=== PATIENT | female | born 1975 | race Caucasian/White ===

== ENCOUNTER 2016-12-18 12:01 | Inpatient (IN) ==
[2016-12-18] MEDS ORDERED: METOPROLOL TARTRATE 25 MG TABLET PO STA (12:52)
[2016-12-18] MEDS ORDERED: ASPIRIN 325 MG TABLET PO STA (12:52)
[2016-12-18] MEDS ORDERED: SODIUM CHLORIDE 0.9% 500 ML IV STA (12:52)
[2016-12-18] MEDS ORDERED: NITROGLYCERIN 2% OINT 1 INCH/GM PACK TOP STA (12:52)
[2016-12-18] MEDS ORDERED: ALUM/MAG/SIMETH/LIDO VISC 1:1 30 ML BOTTLE PO STA (12:52)
[2016-12-18] MEDS ORDERED: ONDANSETRON 4 MG/2 ML VIAL IV STA (12:52)
[2016-12-18] MEDS ORDERED: MORPHINE 2 MG/1 ML SYRINGE IV STA (12:52)
--- NOTE | 2016-12-18 12:56 | EKG Report ---
Stationary ECG Study [facility] ER Test Date: 12/18/2016 12:16:28 PM Pat Name: WOODROW DONALDSON Department: Room: Gender: F Behavioral Analyst: PALOMO Martínez : 1975 Requested by: Mitch Olvera Order Number: [id number] Reading MD: RADHA SANDERS Intervals [place] Rate: 99 P: 58 SC: 138 QRS: 76 QRSD: 97 T: 48 QT: 341 QTc: 397 Interpretive Statements SINUS RHYTHM MINIMAL ST DEPRESSION Electronically Signed On 12-18-16 15:55:27 CDT by RADHA SANDERS [email or web address]
[2016-12-18 13:10] LABS: Basophils % 0.3 % (0.0-0.8); Eosinophils # 0.1 10*3/uL (0.0-0.87); Eosinophils % 0.7 % (0.00-10.9); Hematocrit 39.8 VOL% (35.7-47.0); Hemoglobin 14.1 GM/DL (12.0-16.0); Immature Granulocytes % 0.4 %; Immature Granulocytes Absolute 0.04 #; Lymphocytes # 3.8 10*3/uL (1.4-4.0); Lymphocytes % 35.1 % (21.3-54.2); Mean Corpuscular HGB Conc 35.4 GM/DL (32-36); Mean Corpuscular Hemoglobin 33 PG (27-34); Mean Corpuscular Volume 91.9 FL (87-102); Mean Platelet Volume 10.3 FL (9.6-12.0); Monocytes # 0.8 10*3/uL (0.11-0.8); Neutrophils # 6.1 10*3/uL (1.4-7.4); Neutrophils % 56.5 % (38.7-73.9); Platelet Count 278 T/CUMM (130-400); Red Blood Count 4.33 MC/CUMM (3.8-5.5); Red Cell Distribution Width 12.2 % (9.3-17.3); White Blood Count 10.8 T/CUMM (4-12)
--- NOTE | 2016-12-18 13:13 | XRay Report ---
2 view chest. Indication: Chest pain. The heart and mediastinal contours are unremarkable. The pulmonary vasculature is normal. The lung vines are clear. No pneumothorax or pleural effusion. Surgical clips in the right upper quadrant. Impression: No acute abnormality. PROCEDURE INTERPRETED AT [facility] DEPARTMENT OF RADIOLOGY Final Report Signed by: Dr. Ramya Saenz
[2016-12-18 13:18] LABS: Albumin 4.3 G/DL (3.4-5.0); Bilirubin,Total 0.5 MG/DL (0.2-1.0); Calcium 9.7 MG/DL (8.5-10.1); Magnesium 2.2 MG/DL (1.8-2.4); Osmolality,Calculated 275.5 MOS/KG (273-304); Total Protein 7.5 G/DL (6.4-8.3)
[2016-12-18 13:18] LABS: D-Dimer <= 0.5 MG/L FEU; PT Patient Result 10.2 SECS
[2016-12-18 13:19] LABS: Troponin I Only < 0.015 NG/ML (0.00-0.045)
[2016-12-18] MEDS ORDERED: ONDANSETRON 4 MG/2 ML VIAL ONE (13:37)
[2016-12-18] MEDS ORDERED: METOPROLOL TARTRATE 25 MG TABLET ONE (13:37)
[2016-12-18] MEDS ORDERED: NITROGLYCERIN 2% OINT 1 INCH/GM PACK TOP ONE (13:37)
[2016-12-18] MEDS ORDERED: MORPHINE 2 MG/1 ML SYRINGE ONE (13:37)
[2016-12-18] MEDS ORDERED: ALUM/MAG/SIMETH/LIDO VISC 1:1 30 ML BOTTLE PO ONE (13:38)
[2016-12-18] MEDS ORDERED: ASPIRIN 325 MG TABLET ONE (13:38)
--- NOTE | 2016-12-18 14:11 | Emergency Department Note ---
Miguel Bai Brooke, am scribing for, and in the presence of, Mitch Vargas MD 13 :04. Sam Bai Charles R, MD, personally performed the services described in this documentation, ascribed by Sofya Rivera in my presence, and it is both accurate and complete 411 . Arrival - Arrival Chief Complaint: Chest Pain Stated Complaint: chest pain ED Nursing Triage Note: Pt c/o chest pain that has comes and goes x 1 wk starts behind her left shoulder blade through to her chest. Mode of Arrival: Ambulatory Limitations: No Limitations Source: Patient, RN Notes Reviewed Time Seen by Provider: 12/18/16 12:45 - History of Present Illness HPI Narrative: Patient is a 89 year old female who presents to the ED with c/o chest pain that started a little over a week ago. She says the pain is intermittent and lasts about a minute each time. The pain is located on the left side of her chest and radiates through to her shoulder blade. Patient describes the pain as squeezing. She says the pain is not worsened with exertion but seems to be worse when sitting still. She went to the beach, this past weekend, and says the pain got really bad while driving down there. Patient denies any recent exercise or heavy lifting. She has not had any extra stress. She says she is not currently hurting but has hurt since arriving at the ED. Patient denies having any nausea, shortness of breath, or diaphoresis. Patient has been taking Rolaids, Anti-acids, and Aleve and says nothing has relieved the pain. Patient is a smoker and says she quit smoking and the chest pain started about a week later. She says she has started smoking about two cigarettes a day since the pain started. Patient has PMHx of HTN and takes Lisinopril. She says her blood pressure has been normal. She has not taken any ASA. FHx of heart disease includes her father. Onset (ago): week(s) (1) Date of Last Menstrual Period: over 1 wk ago Allergies/Adverse Reactions: Allergies Allergy/AdvReac Type Severity Reaction Status Date / Time No Known Allergies Allergy Verified 12/18/16 12:03 Review of System - Review of System 12 point system: reviewed and no additional remarkable complaints except as stated - Review of System Constitutional: Absent: diaphoresis, fever Respiratory: Absent: respiratory distress Cardiovascular: Present: chest pain Gastrointestinal: Absent: nausea Skin: Absent: rash Medical,Surgical,& Family Hx - Medical History Cardio: History of: Hypertension Psychological: History of: Depression Endocrine: History of: Dyslipidemia - Social History Smoking Status: Current every day smoker Exam Vital Signs: Vital Signs Temperature 99.1 F 12/18/16 12:50 Pulse Rate 109 H 12/18/16 12:50 Respiratory Rate 18 12/18/16 12:50 Blood Pressure 186/119 12/18/16 12:50 O2 Sat by Pulse Oximetry 100 12/18/16 13:09 - General General appearance: alert, in no apparent distress - Head Head exam: Present: atraumatic, normocephalic - Eye Eye exam: Present: normal appearance, PERRL, EOMI - ENT ENT exam: Present: normal exam - Neck Neck exam: Present: normal inspection - Chest Chest inspection: Present: normal inspection, symmetric chest wall rise - Respiratory Respiratory exam: Present: normal lung sounds bilaterally - Cardiovascular Cardiovascular exam: Present: regular rate, normal rhythm, normal heart sounds - Abdominal Exam Abdominal exam: Present: soft, normal bowel sounds. Absent: distention, tenderness - Extremities Exam Extremities exam: Present: normal inspection - Back Exam Back exam: Present: normal inspection - Neurological Exam Neurological exam: Present: alert, oriented X3 - Psychiatric Psychiatric exam: Present: normal affect, normal mood - Skin Skin exam: Present: warm, dry, intact, normal color Course - Consultations Consultation #1: Hospitalist will admit patient Time: 14:11 Results - Labs CBC & BMP: 12/18/16 11:43 12/18/16 12:43 Lab Results: I have reviewed the patients labs Labs: Laboratory Tests 12/18/16 11:43 WBC 10.8 RBC 4.33 Hgb 14.1 Hct 39.8 MCV 91.9 MCH 33 MCHC 35.4 RDW 12.2 Plt Count 278 MPV 10.3 Neut % (Auto) 56.5 Lymph % (Auto) 35.1 [place] % (Auto) 7.0 Eos % (Auto) 0.7 Baso % (Auto) 0.3 Neut # (Auto) 6.1 Lymph # (Auto) 3.8 [place] # (Auto) 0.8 Eos # (Auto) 0.1 Baso # (Auto) 0.0 Immature Gran % 0.4 Nucleated RBC % 0.0 Immature Gran # 0.04 Nucleated RBCs # 0.00 Immature Plt Fraction 0.0 Laboratory Tests 12/18/16 12/18/16 12/18/16 11:43 12:43 12:43 INR 1.0 PT Patient/Control Mix 10.2 D-Dimer, Quantitative <= 0.5 Sodium 139 Potassium 4.0 Chloride 106 Carbon Dioxide 24 Anion Gap 13.0 BUN 9 Creatinine 0.70 GFR Calculation 99 BUN/Creatinine Ratio 12.00 Glucose 98 Calculated Osmolality 275.5 Calcium 9.7 Magnesium 2.2 Total Bilirubin 0.50 AST 11 ALT 23 Alkaline Phosphatase 54 Total Creatine Kinase 65 CK-MB (CK-2) < 1.0 Troponin I < 0.015 Total Protein 7.5 Albumin 4.3 Globulin 3.2 Albumin/Globulin Ratio 1.3 Lipase 155.0 Laboratory Tests 12/18/16 11:43 B-Natriuretic Peptide 24 - Diagnostic Findings Procedure: Chest x-ray: report reviewed by me (No acute abnormality.) Disposition Clinical Impression: Chest pain Case discussed with: patient, patient's family Disposition: Still a Patient Condition: Stable Time of Disposition: 14:11
[2016-12-18] MEDS ORDERED: ONDANSETRON 4 MG/2 ML VIAL IV PRN (14:27)
[2016-12-18] MEDS ORDERED: NITROGLYCERIN SL 0.4 MG TABLET SL PRN (14:49)
--- NOTE | 2016-12-18 14:59 | Hospitalist History & Physical ---
Assessment and Plan (1) Nicotine addiction Status: Acute Assessment and plan: The patient reports recent attempt to stop smoking. She reported that she had stopped smoking 2 weeks ago however, started back smoking on this weekend. Spoke with patient in great detail regarding the merits associated with smoking necessitation. The patient agreed that she indeed needed to refrain from cigarette smoking. Nicotine patch has been ordered and the patient has agreed to use during the clinical encounter. Current Visit: Yes (2) Hypertension Status: Acute Assessment and plan: Blood pressure was stable at the time of ED encounter. At the time of presentation, the patient presented with her current antihypertensive agent lisinopril 10 mg daily. We will resume as previously ordered. In addition, we will start low-dose aspirin and beta-craig. We will monitor blood pressures closely during the clinical encounter. Current Visit: Yes (3) Insurance coverage problems Status: Acute Assessment and plan: The patient was reluctant to agree to the hospital admission due to her lack of current healthcare coverage. We will make a social service consult to assist and provide the patient with options for insurance coverage. Current Visit: Yes (4) Chest pain Status: Acute Assessment and plan: The patient reported the onset of chest pain 1 week prior to presentation. She reported that the chest pain was isolated to the left side of her chest radiating down to her shoulder. In addition, she reported that she has a strong family history for sudden cardiac and that multiple family members had succumb secondary to this. I feel that she has multiple and strong risk factors attributing to severe cardiovascular disease. We will obtain serial cardiac enzymes, stat lipid panel, echocardiogram, and low-dose aspirin. We will monitor closely. If cardiac enzymes are positive, we will consult cardiology. Current Visit: Yes History of Present Illness Chief complaint: Chest pain History of present illness: This is a very pleasant 41-year-old female that presented to the ED at [facility] on this afternoon for the evaluation of chest pain. Patient has a medical history significant for nicotine addiction, hypertension, and depression. Patient has a surgical history significant for bilateral breast implantation, tummy tuck, multiple abdominal laparotomy procedures. The patient reported the onset of symptoms 1 week prior to presentation. She reported multiple episodes in which she experienced intermittent pain lasting about 1 minute in duration. She reported that the pain was isolated to the left side of her chest however, radiated through to her shoulder blade. She described the pain as squeezing that is not worsened by exertion however, worsened upon nonmovement. She reports that she had been taking multiple antidepressants and NSAIDs this we can however failed to receive any degree of relief. In addition, the patient denied nausea, shortness of breath, diaphoresis, vertigo, and syncope. Her symptoms became severe this afternoon prompting her to present to the ED at [facility] for further evaluation. The patient was assessed at the time of ED presentation. The chest pain protocol was initiated. Labs were obtained which were essentially unremarkable for any abnormalities. Chest x-ray was essentially unremarkable for the presence of any acute cardiopulmonary processes. Incidentally, the patient reported a strong family history significant for cardiovascular disease. The patient reported that her father, aunt, and grandmother all from massive heart attacks. After brief discussion with both Dr. Vargas and Dr. Velez, the patient will be admitted to the hospitalist service for continuation of care. The patient's home medications have been reviewed and reconciled. CODE STATUS discussed; patient is a FULL CODE. Allergies Allergy/AdvReac Type Severity Reaction Status Date / Time No Known Allergies Allergy Verified 12/18/16 12:03 Medical,Surgical,& Family Hx - Medical History Cardio: History of: Hypertension Psychological: History of: Depression Endocrine: History of: Dyslipidemia - Social History Smoking Status: Current every day smoker 12 point system: reviewed and no additional remarkable complaints except as stated Exam - Constitutional Vitals: Period Temp Pulse Resp BP Sys/Hodgson Pulse Ox Last 24 Hr 99.1 F-99.1 F 109-109 18-18 186-186/119-119 100-100 General appearance: normal weight, no acute distress - Head Head exam: Present: normal inspection, normocephalic, atraumatic - Eye Eye exam: Present: EOMI, nystagmus. Absent: conjunctival injection Pupils: Present: JUAQUIN, normal accommodation - ENT ENT exam: Present: normal exam, normal external ear exam, normal oropharynx - Neck Neck exam: Present: normal inspection. Absent: lymphadenopathy, meningismus, tenderness, thyromegaly - Respiratory Respiratory exam: Present: clear to auscultation bilaterally. Absent: rales, rhonchi, stridor, wheezes - Cardiovascular Cardiovascular exam: Present: regular rate and rhythm. Absent: carotid bruit, diastolic murmur, gallop, JVD, rubs, systolic murmur - GI/Abdominal GI/Abdominal exam: Present: normal bowel sounds, soft - Extremities Exam Extremities exam: Present: normal inspection, normal capillary refill, full ROM , edema - Back Exam Back exam: Present: normal inspection - Neurological Exam Neurological exam: Present: alert, oriented X3, CN II-XII intact - Psychiatric Psychiatric exam: Present: normal affect, normal mood - Skin Skin exam: Present: normal color, warm, dry Results - Labs CBC & BMP: 12/18/16 11:43 12/18/16 12:43 Lab Results: I have reviewed the past 24 hour labs
[2016-12-18 15:36] LABS: Risk Ratio 5.45; VLDL CHOLESTEROL 59.8 MG/DL
[2016-12-18] MEDS ORDERED: NICOTINE 7 MG/24 HR PATCH TRANSDERM PRN (16:05)
[2016-12-18] MEDS: NICOTINE 21 MG/24 HR PATCH TRANSDERM SCH (16:49)
[2016-12-18] MEDS: ALUMINUM/MAGNES/SIMETH MAX STR 30 ML UDCUP PO SCH ×2 (16:59→21:10)
--- NOTE | 2016-12-18 17:54 | Cardiology Consult Note ---
Richardson, Maryam Perez, NORMA, am scribing for, and in the presence of, Sarah Danielle DO 17:49. Assessment and Plan - Time spent with patient Time spent with patient: Greater than 30 minutes (1) Chest pain Status: Chronic Assessment and plan: This is noncardiac chest pain. Patient has some family history of coronary artery disease she smokes she has hypertriglyceridemia with an HDL of 40 and LDL of 120. I recommend that we initiated enteric-coated 81 mg aspirin daily which she previously did not take I recommend that we add a statin therapy and anticipate gated walking nuclear stress test tomorrow. She has a family history of sudden cardiac and premature coronary disease in her father and her paternal aunt which in the face of her tobacco, hypertension and dyslipidemia put her at some increased risk for coronary artery disease. Her lipids are typical for smoker and I recommend further evaluation was for discharge for further risk stratification. She has a ROSANA risk score of 0. Current Visit: Yes Qualifiers: Chest pain type: precordial pain Qualified Code(s): R07.2 - Precordial pain (2) Nicotine addiction Status: Chronic Assessment and plan: SEE PLAN OF CARE LISTED BELOW Current Visit: Yes Qualifiers: Nicotine product type: cigarettes (3) Hypertension Status: Chronic Assessment and plan: SEE PLAN OF CARE LISTED BELOW Current Visit: Yes Qualifiers: Hypertension type: essential hypertension Qualified Code(s): I10 - Essential (primary) hypertension (4) Dyslipidemia Status: Acute Current Visit: Yes History of Present Illness - Data of Consult Patient: new to [facility] Consult date: 12/18/16 Requesting Physician: Danilo Velez Primary care physician: John Peterson - Consult Narrative Reason for consult: Atypical chest pain History of present illness: RECREATIONAL ASSISTANT: Dr. Danielle (new) Ms. Akbar is a 41 year old WF, who presented to the ER this morning with complaints of chest pain. She denies any cardiac history or workup. She reports a dull, squeezing pain in the left substernal region that has been on and off for over 1 week. She states that at times the pain has radiated into the left arm and the upper left back region. She denies aggravating or relieving factors. The pain is present at rest and with exertion. She denies nausea, vomiting, diaphoresis, shortness of breath, dizziness, syncope or edema. She reports that the chest pain has become more frequent and more intense over the weekend. She has smoked at least one pack per day for 25 years. She reports trying to quit about 3 weeks ago, but did start back over the weekend. She reports a positive family history of sudden cardiac of several family members. Cardiac risk factors include heavy smoker, sedentary life style, hypertension, dyslipidemia. EKG reveals sinus rhythm with minimal ST depression. Chest x-ray is unremarkable for cardiopulmonary findings. Labs reviewed: Hemoglobin and hematocrit are within normal limits, electrolyte WNL, creatinine 0.7, CK-MB and troponin are negative, triglycerides 299, cholesterol 218, LDL 121, HDL 40, lipase 155. Was given nitrates, aspirin, and beta-craig in the ER today. We will continue to cycle cardiac biomarkers and EKG in the morning. The patient' s chest pain is atypical, will plan for cardiac stress test in the morning. ASSESSMENT/PLAN: 1. Atypical chest pain -the patient appears to be having atypical chest pain, however due to her risk factors and family history, we will keep the patient n.p.o. after midnight plan for stress test tomorrow. 2. Smoker -the merits of smoking cessation have been discussed at length with the patient. Nicotine patch started. 3. Hypertension -continue home medication and monitor throughout hospitalization. I saw and discussed with Ms. Perez this is a 41-year-old female with paternal aunt who had sudden cardiac at age 40. Her father had premature coronary artery disease and has been under cardiac care for some years but she does not know exactly what age because of the strange situation with her father. She has had constant substernal chest discomfort that has not responded to OTC antiacids or nonsteroidals has not been relieved or caused by any precipitating factors. OTC nonsteroidals and antacids had no effect. He is not worsened by exertion or eating. During the entire course of the exam the patient is massaging her sternum with the butt of her hand. CC: Danilo Velez MD - Home Medications and Allergies Home Medications: Home Medications Medication Instructions Recorded Confirmed Type Lisinopril [Lisinopril] 10 mg PO BEDTIME 12/18/16 12/18/16 History buPROPion HCl [Bupropion HCl Sr] 150 mg PO BID 12/18/16 12/18/16 History Allergies/Adverse Reactions: Allergies Allergy/AdvReac Type Severity Reaction Status Date / Time No Known Allergies Allergy Verified 12/18/16 12:03 - Constitutional Constitutional: Absent: excessive sweating, fatigue, fever(s) - EENT Nose, mouth and throat: Absent: headache(s) - Cardiovascular Cardiovascular: Present: chest pain at rest, chest pain with activity, palpitations. Absent: diaphoresis, dyspnea, dyspnea on exertion, lightheadedness, orthopnea - Respiratory Respiratory: Absent: cough, dyspnea, dyspnea on exertion, wheezing - Gastrointestinal Gastrointestinal: Absent: abdominal pain, coffee ground emesis, constipation, dyspepsia, hematemesis, melena, nausea, vomiting - Neurological Neurological: Absent: abnormal gait, abnormal speech - Psychiatric Psychiatric: Present: depression - Endocrine Endocrine: Absent: fatigue, heat intolerance Medical,Surgical,& Family Hx - Medical History Cardio: History of: Hypertension Psychological: History of: Depression Neurology: History of: Migraine Endocrine: History of: Dyslipidemia Genitourinary: History of: Recurring Urinary Tract Infections Reproductive: History of: Endometriosis Other: History of: Miscellaneous Medical Problems (tummy tuck) - Surgical History Cardiac Surgeries: Patient Denies: Cardiac Catheterization Abdominal Surgeries: Surgical HX of: Cholecystectomy, Colonoscopy Reproductive Surgeries: Surgical HX of;: Breast Surgery (breast augmentatiom and tumy tuck) - Family History Family History: Reports;: Family Cancer (father), Family Heart Disease (father) , Family Hypertension (father) - Social History Smoking Status: Current every day smoker Have you smoked in the last 12 months: Yes Time spent discussing smoking cessation with patient: 3 to 10 minutes Frequency of Alcohol Use: Rarely Type of Drug Use: None Physical Examination Vital Signs Temp Pulse Resp BP Pulse Ox 99.1 F 109 H 18 186/119 100 12/18/16 12:02 12/18/16 12:02 12/18/16 12:02 12/18/16 12:02 12/18/16 12:02 Exam: General: Appears well with no apparent distress. Pleasant and cooperative. Appears comfortable. HEENT: PERRL, normocephalic, atraumatic. Mucous membranes moist. No jaundice noted. Conjunctiva moist and clear, sclerae anicteric. Neck: No JVD/HJR, no thyromegaly or lymphadenopathy noted. No carotid bruit appreciated. Cardiac: Regular rate and rhythm. No murmur rub or gallop. PMI is nondisplaced. Lungs: Clear to auscultation without accessory muscle use to assist the respiratory pattern. No oxygen required Abdomen: Soft, bowel sounds normoactive. Nontender and nondistended. No abdominal bruit or thrill noted. No masses noted. Musculoskeletal: No fluid collection. Active range of motion is noted to all extremities Extremities: No clubbing, cyanosis noted. No edema noted. Upper extremity pulses 2+. Lower extremity pulses 2+. Capillary refill less than 3 seconds. Skin: No unusual lesions or rashes. No skin breakdown appreciated. Neuro: Awake, alert and oriented 3. Moves all extremities well without hemiparesis or paralysis. No essential tremor is appreciated. Result/EKG - Labs CBC & BMP: 12/18/16 11:43 12/18/16 12:43 Lab Results: I have reviewed the past 24 hour labs Labs: Laboratory Results - last 24 hr 12/18/16 12/18/16 12/18/16 11:43 11:43 11:43 WBC 10.8 RBC 4.33 Hgb 14.1 Hct 39.8 MCV 91.9 MCH 33 MCHC 35.4 RDW 12.2 Plt Count 278 MPV 10.3 Neut % (Auto) 56.5 Lymph % (Auto) 35.1 [place] % (Auto) 7.0 Eos % (Auto) 0.7 Baso % (Auto) 0.3 Neut # (Auto) 6.1 Lymph # (Auto) 3.8 [place] # (Auto) 0.8 Eos # (Auto) 0.1 Baso # (Auto) 0.0 Immature Gran % 0.4 Nucleated RBC % 0.0 Immature Gran # 0.04 Nucleated RBCs # 0.00 Immature Plt Fraction 0.0 INR 1.0 PT Patient/Control Mix 10.2 D-Dimer, Quantitative <= 0.5 Sodium Potassium Chloride Carbon Dioxide Anion Gap BUN Creatinine GFR Calculation BUN/Creatinine Ratio Glucose Calculated Osmolality Calcium Magnesium Total Bilirubin AST ALT Alkaline Phosphatase Total Creatine Kinase CK-MB (CK-2) Troponin I B-Natriuretic Peptide 24 Total Protein Albumin Globulin Albumin/Globulin Ratio Triglycerides Cholesterol LDL Cholesterol VLDL Cholesterol HDL Cholesterol Heart Disease Risk Ratio Lipase 12/18/16 12/18/16 12/18/16 12:43 12:43 12:43 WBC RBC Hgb Hct MCV MCH MCHC RDW Plt Count MPV Neut % (Auto) Lymph % (Auto) [place] % (Auto) Eos % (Auto) Baso % (Auto) Neut # (Auto) Lymph # (Auto) [place] # (Auto) Eos # (Auto) Baso # (Auto) Immature Gran % Nucleated RBC % Immature Gran # Nucleated RBCs # Immature Plt Fraction INR PT Patient/Control Mix D-Dimer, Quantitative Sodium 139 Potassium 4.0 Chloride 106 Carbon Dioxide 24 Anion Gap 13.0 BUN 9 Creatinine 0.70 GFR Calculation 99 BUN/Creatinine Ratio 12.00 Glucose 98 Calculated Osmolality 275.5 Calcium 9.7 Magnesium 2.2 Total Bilirubin 0.50 AST 11 ALT 23 Alkaline Phosphatase 54 Total Creatine Kinase 65 CK-MB (CK-2) < 1.0 Troponin I < 0.015 B-Natriuretic Peptide Total Protein 7.5 Albumin 4.3 Globulin 3.2 Albumin/Globulin Ratio 1.3 Triglycerides 299 H Cholesterol 218 H LDL Cholesterol 121.0 VLDL Cholesterol 59.8 HDL Cholesterol 40 Heart Disease Risk Ratio 5.45 Lipase 155.0 12/18/16 16:04 WBC RBC Hgb Hct MCV MCH MCHC RDW Plt Count MPV Neut % (Auto) Lymph % (Auto) [place] % (Auto) Eos % (Auto) Baso % (Auto) Neut # (Auto) Lymph # (Auto) [place] # (Auto) Eos # (Auto) Baso # (Auto) Immature Gran % Nucleated RBC % Immature Gran # Nucleated RBCs # Immature Plt Fraction INR PT Patient/Control Mix D-Dimer, Quantitative Sodium Potassium Chloride Carbon Dioxide Anion Gap BUN Creatinine GFR Calculation BUN/Creatinine Ratio Glucose Calculated Osmolality Calcium Magnesium Total Bilirubin AST ALT Alkaline Phosphatase Total Creatine Kinase CK-MB (CK-2) Troponin I < 0.015 B-Natriuretic Peptide Total Protein Albumin Globulin Albumin/Globulin Ratio Triglycerides Cholesterol LDL Cholesterol VLDL Cholesterol HDL Cholesterol Heart Disease Risk Ratio Lipase - Diagnostic Findings Procedure: Chest x-ray: report reviewed by me - EKG EKG results: interpreted by me, sinus rhythm (no diagnostic changes) Lolis Bai Shea, , personally performed the services described in this documentation, ascribed by Maryam Perez NP in my presence, and it is both accurate and complete [id number] .
[2016-12-18] MEDS ORDERED: CARVEDILOL 3.125 MG TABLET PO SCH (21:00)
[2016-12-18] MEDS ORDERED: ATORVASTATIN 20 MG TABLET PO SCH (21:00)
[2016-12-18] MEDS ORDERED: LISINOPRIL 10 MG TABLET PO SCH (21:00)
[2016-12-18] MEDS: FAMOTIDINE 20 MG TABLET PO SCH (22:04)
[2016-12-18] MEDS: buPROPion SR 150 MG TABLET PO SCH (22:04)
[2016-12-19] MEDS: ALUMINUM/MAGNES/SIMETH MAX STR 30 ML UDCUP PO SCH ×2 (00:58→05:59)
[2016-12-19 06:32] LABS: Albumin 3.4 G/DL (3.4-5.0); Bilirubin,Total 0.4 MG/DL (0.2-1.0); Magnesium 2.8 MG/DL (1.8-2.4); Osmolality,Calculated 278.4 MOS/KG (273-304); Phosphorous 3.2 MG/DL (2.5-4.9); Potassium 4.9 MMOL/L (3.5-5.1); Total Protein 6.2 G/DL (6.4-8.3)
--- NOTE | 2016-12-19 07:36 | EKG Report ---
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
--- NOTE | 2016-12-19 07:36 | EKG Report ---
Stationary ECG Study [facility] Test Date: 12/19/2016 6:59:30 AM Pat Name: WOODROW DONALDSON Department: Room: 279 Gender: F Manager Of International: RHIANNON : 1975 Requested by: Elena Curry Order Number: [id number] Stanislav MD: JAZMYNE LEMOS Intervals [place] Rate: 51 P: 68 MD: 140 QRS: 110 QRSD: 90 T: 57 QT: 434 QTc: 411 Interpretive Statements SINUS BRADYCARDIA POSSIBLE RIGHT VENTRICULAR HYPERTROPHY Electronically Signed On 12-20-16 07:23:30 CDT by JAZMYNE LEMOS [email or web address]
--- NOTE | 2016-12-19 08:51 | Event Note ---
<Ramya Reddy - Last Filed: 12/19/16 08:47> Patient underwent cardiac stress testing this morning. She underwent Danilo protocol, achieved target heart rate without difficulty. She tolerated well without complaints of chest pain, heaviness and tightness. Great exercise tolerance noted, achieved 12.1 mets. Heart rate and blood pressure responded appropriately to exercise. She did experience mild dyspnea on exertion. No arrhythmias. ST depression was noted in leads II, 3, aVF, V5 and V6. Patient is now on to final nuclear scan. Dr. Danielle to read, interpret and advise. <Sarah Danielle - Last Filed: 12/20/16 06:56> No diagnostic ST-T changes. Please see my dictated report.
[2016-12-19] MEDS ORDERED: LISINOPRIL 10 MG TABLET PO SCH (09:00)
[2016-12-19] MEDS ORDERED: ASPIRIN EC 81 MG TABLET PO SCH (09:00)
--- NOTE | 2016-12-19 10:56 | Cardiology Progress Note ---
Assessment and Plan (1) Chest pain Status: Chronic Assessment and plan: This is noncardiac chest pain with a low risk nuclear stress test continue risk factor modification smoking cessation statin and low-dose Current Visit: Yes Qualifiers: Qualified Code(s): R07.2 - Precordial pain (2) Nicotine addiction Status: Chronic Assessment and plan: Education given greater than 3 minutes Current Visit: Yes (3) Hypertension Status: Chronic Assessment and plan: Continue lisinopril Current Visit: Yes Qualifiers: Qualified Code(s): I10 - Essential (primary) hypertension (4) Dyslipidemia Status: Chronic Current Visit: Yes Cardiology - PN: Subj Interval history: Ms. Akbar has no complaints she had no chest pain during her gated walking nuclear stress test 12.1 METs and 85% of maximum dictated heart rate. She had no EKG changes. Her nuclear images are normal. She has a very low risk gated walking nuclear stress test. I recommended that she continue an 81 mg aspirin a day and a statin at discharge. Patient can follow-up with her primary care physician. Nothing further and we will sign off. Please call if needed. Exam (Progress Note) - Constitutional Vitals: Period Temp Pulse Resp BP Sys/Hodgson Pulse Ox Last 24 Hr 96.5 F-99.1 F 57-109 16-20 100-186/45-119 59-100 General appearance: normal weight - Eye Eye exam: Present: EOMI - Respiratory Respiratory exam: Present: clear to auscultation bilaterally - Cardiovascular Cardiovascular exam: Present: regular rate and rhythm - GI/Abdominal GI/Abdominal exam: Present: normal bowel sounds Result/EKG - Labs CBC & BMP: 12/18/16 11:43 12/19/16 04:59 Labs: Laboratory Results - last 24 hr 12/18/16 12/18/16 12/18/16 11:43 11:43 11:43 WBC 10.8 RBC 4.33 Hgb 14.1 Hct 39.8 MCV 91.9 MCH 33 MCHC 35.4 RDW 12.2 Plt Count 278 MPV 10.3 Neut % (Auto) 56.5 Lymph % (Auto) 35.1 [place] % (Auto) 7.0 Eos % (Auto) 0.7 Baso % (Auto) 0.3 Neut # (Auto) 6.1 Lymph # (Auto) 3.8 [place] # (Auto) 0.8 Eos # (Auto) 0.1 Baso # (Auto) 0.0 Immature Gran % 0.4 Nucleated RBC % 0.0 Immature Gran # 0.04 Nucleated RBCs # 0.00 Immature Plt Fraction 0.0 INR 1.0 PT Patient/Control Mix 10.2 D-Dimer, Quantitative <= 0.5 Sodium Potassium Chloride Carbon Dioxide Anion Gap BUN Creatinine GFR Calculation BUN/Creatinine Ratio Glucose Calculated Osmolality Calcium Phosphorus Magnesium Total Bilirubin AST ALT Alkaline Phosphatase Total Creatine Kinase CK-MB (CK-2) Troponin I B-Natriuretic Peptide 24 Total Protein Albumin Globulin Albumin/Globulin Ratio Triglycerides Cholesterol LDL Cholesterol VLDL Cholesterol HDL Cholesterol Heart Disease Risk Ratio Lipase 12/18/16 12/18/16 12/18/16 12:43 12:43 12:43 WBC RBC Hgb Hct MCV MCH MCHC RDW Plt Count MPV Neut % (Auto) Lymph % (Auto) [place] % (Auto) Eos % (Auto) Baso % (Auto) Neut # (Auto) Lymph # (Auto) [place] # (Auto) Eos # (Auto) Baso # (Auto) Immature Gran % Nucleated RBC % Immature Gran # Nucleated RBCs # Immature Plt Fraction INR PT Patient/Control Mix D-Dimer, Quantitative Sodium 139 Potassium 4.0 Chloride 106 Carbon Dioxide 24 Anion Gap 13.0 BUN 9 Creatinine 0.70 GFR Calculation 99 BUN/Creatinine Ratio 12.00 Glucose 98 Calculated Osmolality 275.5 Calcium 9.7 Phosphorus Magnesium 2.2 Total Bilirubin 0.50 AST 11 ALT 23 Alkaline Phosphatase 54 Total Creatine Kinase 65 CK-MB (CK-2) < 1.0 Troponin I < 0.015 B-Natriuretic Peptide Total Protein 7.5 Albumin 4.3 Globulin 3.2 Albumin/Globulin Ratio 1.3 Triglycerides 299 H Cholesterol 218 H LDL Cholesterol 121.0 VLDL Cholesterol 59.8 HDL Cholesterol 40 Heart Disease Risk Ratio 5.45 Lipase 155.0 12/18/16 12/18/16 12/19/16 16:04 18:40 04:59 WBC RBC Hgb Hct MCV MCH MCHC RDW Plt Count MPV Neut % (Auto) Lymph % (Auto) [place] % (Auto) Eos % (Auto) Baso % (Auto) Neut # (Auto) Lymph # (Auto) [place] # (Auto) Eos # (Auto) Baso # (Auto) Immature Gran % Nucleated RBC % Immature Gran # Nucleated RBCs # Immature Plt Fraction INR PT Patient/Control Mix D-Dimer, Quantitative Sodium 140 Potassium 4.9 Chloride 107 Carbon Dioxide 27 Anion Gap 10.9 BUN 12 Creatinine 0.70 GFR Calculation 99 BUN/Creatinine Ratio 17.00 Glucose 91 Calculated Osmolality 278.4 Calcium 9.0 Phosphorus 3.2 Magnesium 2.8 H Total Bilirubin 0.40 AST 14 ALT 21 Alkaline Phosphatase 42 L Total Creatine Kinase CK-MB (CK-2) Troponin I < 0.015 < 0.015 B-Natriuretic Peptide Total Protein 6.2 L Albumin 3.4 Globulin 2.8 Albumin/Globulin Ratio 1.2 Triglycerides Cholesterol LDL Cholesterol VLDL Cholesterol HDL Cholesterol Heart Disease Risk Ratio Lipase
--- NOTE | 2016-12-19 10:57 | Cardiology Progress Note ---
Chris Bai Lesley, NORMA, am scribing for, and in the presence of, Sarah Danielle DO 10:57. Assessment and Plan (1) Chest pain Status: Chronic Assessment and plan: SEE PLAN OF CARE LISTED BELOW Current Visit: Yes Qualifiers: Chest pain type: precordial pain Qualified Code(s): R07.2 - Precordial pain (2) Nicotine addiction Status: Chronic Assessment and plan: SEE PLAN OF CARE LISTED BELOW Current Visit: Yes Qualifiers: Nicotine product type: cigarettes (3) Hypertension Status: Chronic Assessment and plan: SEE PLAN OF CARE LISTED BELOW Current Visit: Yes Qualifiers: Hypertension type: essential hypertension Qualified Code(s): I10 - Essential (primary) hypertension (4) Dyslipidemia Status: Chronic Current Visit: Yes Exam (Progress Note) - Constitutional Vitals: Period Temp Pulse Resp BP Sys/Hodgson Pulse Ox Last 24 Hr 96.5 F-99.1 F 57-109 16-20 100-186/45-119 59-100 Result/EKG - Labs CBC & BMP: 12/18/16 11:43 12/19/16 04:59 Labs: Laboratory Results - last 24 hr 12/18/16 12/18/16 12/18/16 11:43 11:43 11:43 WBC 10.8 RBC 4.33 Hgb 14.1 Hct 39.8 MCV 91.9 MCH 33 MCHC 35.4 RDW 12.2 Plt Count 278 MPV 10.3 Neut % (Auto) 56.5 Lymph % (Auto) 35.1 [place] % (Auto) 7.0 Eos % (Auto) 0.7 Baso % (Auto) 0.3 Neut # (Auto) 6.1 Lymph # (Auto) 3.8 Ness # (Auto) 0.8 Eos # (Auto) 0.1 Baso # (Auto) 0.0 Immature Gran % 0.4 Nucleated RBC % 0.0 Immature Gran # 0.04 Nucleated RBCs # 0.00 Immature Plt Fraction 0.0 INR 1.0 PT Patient/Control Mix 10.2 D-Dimer, Quantitative <= 0.5 Sodium Potassium Chloride Carbon Dioxide Anion Gap BUN Creatinine GFR Calculation BUN/Creatinine Ratio Glucose Calculated Osmolality Calcium Phosphorus Magnesium Total Bilirubin AST ALT Alkaline Phosphatase Total Creatine Kinase CK-MB (CK-2) Troponin I B-Natriuretic Peptide 24 Total Protein Albumin Globulin Albumin/Globulin Ratio Triglycerides Cholesterol LDL Cholesterol VLDL Cholesterol HDL Cholesterol Heart Disease Risk Ratio Lipase 12/18/16 12/18/16 12/18/16 12:43 12:43 12:43 WBC RBC Hgb Hct MCV MCH MCHC RDW Plt Count MPV Neut % (Auto) Lymph % (Auto) [place] % (Auto) Eos % (Auto) Baso % (Auto) Neut # (Auto) Lymph # (Auto) [place]ess # (Auto) Eos # (Auto) Baso # (Auto) Immature Gran % Nucleated RBC % Immature Gran # Nucleated RBCs # Immature Plt Fraction INR PT Patient/Control Mix D-Dimer, Quantitative Sodium 139 Potassium 4.0 Chloride 106 Carbon Dioxide 24 Anion Gap 13.0 BUN 9 Creatinine 0.70 GFR Calculation 99 BUN/Creatinine Ratio 12.00 Glucose 98 Calculated Osmolality 275.5 Calcium 9.7 Phosphorus Magnesium 2.2 Total Bilirubin 0.50 AST 11 ALT 23 Alkaline Phosphatase 54 Total Creatine Kinase 65 CK-MB (CK-2) < 1.0 Troponin I < 0.015 B-Natriuretic Peptide Total Protein 7.5 Albumin 4.3 Globulin 3.2 Albumin/Globulin Ratio 1.3 Triglycerides 299 H Cholesterol 218 H LDL Cholesterol 121.0 VLDL Cholesterol 59.8 HDL Cholesterol 40 Heart Disease Risk Ratio 5.45 Lipase 155.0 12/18/16 12/18/16 12/19/16 16:04 18:40 04:59 WBC RBC Hgb Hct MCV MCH MCHC RDW Plt Count MPV Neut % (Auto) Lymph % (Auto) [place] % (Auto) Eos % (Auto) Baso % (Auto) Neut # (Auto) Lymph # (Auto) Ness # (Auto) Eos # (Auto) Baso # (Auto) Immature Gran % Nucleated RBC % Immature Gran # Nucleated RBCs # Immature Plt Fraction INR PT Patient/Control Mix D-Dimer, Quantitative Sodium 140 Potassium 4.9 Chloride 107 Carbon Dioxide 27 Anion Gap 10.9 BUN 12 Creatinine 0.70 GFR Calculation 99 BUN/Creatinine Ratio 17.00 Glucose 91 Calculated Osmolality 278.4 Calcium 9.0 Phosphorus 3.2 Magnesium 2.8 H Total Bilirubin 0.40 AST 14 ALT 21 Alkaline Phosphatase 42 L Total Creatine Kinase CK-MB (CK-2) Troponin I < 0.015 < 0.015 B-Natriuretic Peptide Total Protein 6.2 L Albumin 3.4 Globulin 2.8 Albumin/Globulin Ratio 1.2 Triglycerides Cholesterol LDL Cholesterol VLDL Cholesterol HDL Cholesterol Heart Disease Risk Ratio Lipase I, Sarah Danielle, DO, personally performed the services described in this documentation, ascribed by Maryam Perez NP in my presence, and it is both accurate and complete .
[2016-12-19] MEDS: FAMOTIDINE 20 MG TABLET PO SCH (11:01)
[2016-12-19] MEDS: buPROPion SR 150 MG TABLET PO SCH (11:01)
[2016-12-19] MEDS: NICOTINE 21 MG/24 HR PATCH TRANSDERM SCH (11:01)
[2016-12-19 11:47] VITALS: BP 113/70
--- NOTE | 2016-12-19 12:30 | Discharge Summary ---
Hospital Course - Hospital Course Hospital Course: COMMUNITY AIDE: Dr. Danielle (new) Ms. Akbar is a 41 year old WF, who presented to the ER this morning with complaints of chest pain. She denies any cardiac history or workup. She reports a dull, squeezing pain in the left substernal region that has been on and off for over 1 week. She states that at times the pain has radiated into the left arm and the upper left back region. She denies aggravating or relieving factors. The pain is present at rest and with exertion. She denies nausea, vomiting, diaphoresis, shortness of breath, dizziness, syncope or edema. She reports that the chest pain has become more frequent and more intense over the weekend. She has smoked at least one pack per day for 25 years. She reports trying to quit about 3 weeks ago, but did start back over the weekend. She reports a positive family history of sudden cardiac of several family members. Cardiac risk factors include heavy smoker, sedentary life style, hypertension, dyslipidemia. EKG reveals sinus rhythm with minimal ST depression. Chest x-ray is unremarkable for cardiopulmonary findings. Labs reviewed: Hemoglobin and hematocrit are within normal limits, electrolyte WNL, creatinine 0.7, CK-MB and troponin are negative, triglycerides 299, cholesterol 218, LDL 121, HDL 40, lipase 155. Was given nitrates, aspirin, and beta-craig in the ER. Cardiac biomarkers negative, telemetry monitoring revealed sinus bradycardia and sinus rhythm. Noncardiac chest pain, stress test tolerated well this morning by the patient with results pending. The patient was in the hospital with atypical chest pain. The patient had no evidence of cardiac damage by EKG or enzymes. The patient had cardiology consultation and subsequent stress test with nuclear medicine study which revealed no evidence of coronary obstructions. The patient's symptoms improved with antiacid regimen. The patient received stop smoking education and seemed ready to quit. The patient was prescribed Lipitor to help with dyslipidemia. On the date of discharge, examination revealed clear chest and heart had regular rate and rhythm. Abdomen is soft. The patient will follow up with her usual primary care physician. 32 minutes were required for discharge procedures , examination, coordination of care, and preparation of prescriptions with discharge documentation. Medications were reconciled on admission and upon discharge. The patient is her own medical decision maker and wishes to be full code. - Time spent with patient Time with patient DS: Greater than 30 minutes Diagnosis - Discharge Diagnosis (1) GERD (gastroesophageal reflux disease) Status: Chronic (2) Chest pain Status: Resolved (3) Nicotine addiction Status: Chronic (4) Dyslipidemia Status: Chronic Discharge Plan - Discharge Data Disposition: Disch To Home/Self Care Condition at Discharge: Stable Discharge Diet: heart healthy Activity: resume usual activities as tolerated - Discharge Medications New Atorvastatin [Lipitor] 10 mg PO BEDTIME #60 tablet Lansoprazole [Prevacid] 30 mg PO DAILY #45 capsule Continue Lisinopril 10 mg PO BEDTIME buPROPion HCl [Bupropion HCl Sr] 150 mg PO BID - Follow Up or Referral Follow Up: Your,PCP [Other] - 1 Month - Forms/Instructions Exam - Constitutional Vitals: Period Temp Pulse Resp BP Sys/Hodgson Pulse Ox Last 24 Hr 96.5 F-99.1 F 57-109 16-20 100-186/45-119 59-100 Discharge Results Procedures and tests throughout hospitalization: Pending Orders 12/19/16 04:00 NM celestine perf SPECT rest or str IN AM Labs on day of discharge: Labs from last 24 hours 12/19/16 12/18/16 12/18/16 04:59 18:40 16:04 WBC RBC Hgb Hct MCV MCH MCHC RDW Plt Count MPV Neut % (Auto) Lymph % (Auto) [place] % (Auto) Eos % (Auto) Baso % (Auto) Neut # (Auto) Lymph # (Auto) [place] # (Auto) Eos # (Auto) Baso # (Auto) Immature Gran % Nucleated RBC % Immature Gran # Nucleated RBCs # Immature Plt Fraction INR PT Patient/Control Mix D-Dimer, Quantitative Sodium 140 Potassium 4.9 Chloride 107 Carbon Dioxide 27 Anion Gap 10.9 BUN 12 Creatinine 0.70 GFR Calculation 99 BUN/Creatinine Ratio 17.00 Glucose 91 Calculated Osmolality 278.4 Calcium 9.0 Phosphorus 3.2 Magnesium 2.8 H Total Bilirubin 0.40 AST 14 ALT 21 Alkaline Phosphatase 42 L Total Creatine Kinase CK-MB (CK-2) Troponin I < 0.015 < 0.015 B-Natriuretic Peptide Total Protein 6.2 L Albumin 3.4 Globulin 2.8 Albumin/Globulin Ratio 1.2 Triglycerides Cholesterol LDL Cholesterol VLDL Cholesterol HDL Cholesterol Heart Disease Risk Ratio Lipase 12/18/16 12/18/16 12/18/16 12:43 12:43 12:43 WBC RBC Hgb Hct MCV MCH MCHC RDW Plt Count MPV Neut % (Auto) Lymph % (Auto) [place] % (Auto) Eos % (Auto) Baso % (Auto) Neut # (Auto) Lymph # (Auto) [place] # (Auto) Eos # (Auto) Baso # (Auto) Immature Gran % Nucleated RBC % Immature Gran # Nucleated RBCs # Immature Plt Fraction INR PT Patient/Control Mix D-Dimer, Quantitative Sodium 139 Potassium 4.0 Chloride 106 Carbon Dioxide 24 Anion Gap 13.0 BUN 9 Creatinine 0.70 GFR Calculation 99 BUN/Creatinine Ratio 12.00 Glucose 98 Calculated Osmolality 275.5 Calcium 9.7 Phosphorus Magnesium 2.2 Total Bilirubin 0.50 AST 11 ALT 23 Alkaline Phosphatase 54 Total Creatine Kinase 65 CK-MB (CK-2) < 1.0 Troponin I < 0.015 B-Natriuretic Peptide Total Protein 7.5 Albumin 4.3 Globulin 3.2 Albumin/Globulin Ratio 1.3 Triglycerides 299 H Cholesterol 218 H LDL Cholesterol 121.0 VLDL Cholesterol 59.8 HDL Cholesterol 40 Heart Disease Risk Ratio 5.45 Lipase 155.0 12/18/16 12/18/16 12/18/16 11:43 11:43 11:43 WBC 10.8 RBC 4.33 Hgb 14.1 Hct 39.8 MCV 91.9 MCH 33 MCHC 35.4 RDW 12.2 Plt Count 278 MPV 10.3 Neut % (Auto) 56.5 Lymph % (Auto) 35.1 [place] % (Auto) 7.0 Eos % (Auto) 0.7 Baso % (Auto) 0.3 Neut # (Auto) 6.1 Lymph # (Auto) 3.8 [place] # (Auto) 0.8 Eos # (Auto) 0.1 Baso # (Auto) 0.0 Immature Gran % 0.4 Nucleated RBC % 0.0 Immature Gran # 0.04 Nucleated RBCs # 0.00 Immature Plt Fraction 0.0 INR 1.0 PT Patient/Control Mix 10.2 D-Dimer, Quantitative <= 0.5 Sodium Potassium Chloride Carbon Dioxide Anion Gap BUN Creatinine GFR Calculation BUN/Creatinine Ratio Glucose Calculated Osmolality Calcium Phosphorus Magnesium Total Bilirubin AST ALT Alkaline Phosphatase Total Creatine Kinase CK-MB (CK-2) Troponin I B-Natriuretic Peptide 24 Total Protein Albumin Globulin Albumin/Globulin Ratio Triglycerides Cholesterol LDL Cholesterol VLDL Cholesterol HDL Cholesterol Heart Disease Risk Ratio Lipase DS: Provider Date of admission: 12/18/16 14:26 Primary care physician: . No PCP Attending physician on admission: Danilo Velez MD Consults: 12/18/16 15:06 Consult to Case Mgmt/Social Srvs [CONS] Routine Reason for Case Mgmt/Social Srvs: Other Consult Comment: No current insurance coverage 12/18/16 16:03 Consult to Physician [CONS] Routine Comment: atypical chest pain Consulting Provider: Sarah Danielle Discharging clinician: Danilo Velez MD
--- NOTE | 2016-12-19 14:05 | Nuclear Medicine Report ---
ROUTINE NUCLEAR STRESS TEST Ms. Akbar underwent gated walking nuclear stress test by standard Danilo protocol under direction of Ms Eri Reddy. I have reviewed her limited stress, her raw data multidimensional analysis, multipl arelis SPECT images, computer-generated ventriculography analysis, scintigram images. The patient ambu lated by Danilo protocol, 12.1 metabolic equivalents and 85% of maximum predicted heart rate at 153 be ats per minute. GI normal resting blood pressure and appropriate blood pressure and heart rate respo nse to her exercise stress. She had no diagnostic ST segment changes throughout the course and durat ion of her exercise protocol. The patient received 10 mCi of Technetium 99 Cardiolite for rest images, followed by 30 mCi of Techne tium 99 Cardiolite one minute prior to cessation of exercise for stress images. Multidimensional ravi lysis, multiplanar SPECT images, raw data were all performed and reviewed. The patient's raw data de monstrated compatible moderate uptake in both rest and stress images. There was a severe small fixed apical defect in the rest images that completely resolves with the stress images. This is likely se condary to breast augmentation. There is no regional wall motion abnormality. The patient end-diast olic volume is estimated 65 cc, end-systolic volume of 19 cc, an ejection fraction of 71%. IMPRESSION: LOW RISK GATED WALKING NUCLEAR STRESS TEST WITH SCINTIGRAPHICALLY, CLINICALLY AND ELECTRICALLY NEGATI VE GATED NUCLEAR STRESS TEST 12.1 METS AND 85% OF MAXIMUM PREDICTED HEART RATE. Procedure performed and interpreted at [facility] Department of Radiology.
== END 2016-12-19 13:40 | disposition home or self-care (01) | DRG 392 ==
LOC: N.ED 12:01 → N.EDINP 14:26 → N.TELES 15:30
PROVIDERS: ADMIT Internal Medicine; ATTEND Internal Medicine